=== PATIENT | female | born 1995 | race African-American/Black ===

== ENCOUNTER 2022-11-27 14:51 | Inpatient (IN) | payer MEDICAID ==
[~2022-11-27] VITALS: Ht 172.7 cm; Wt 64.9 kg
[2022-11-27 17:13] LABS: COVID AG,FIA SOURCE NASAL SWAB
[2022-11-27 17:38] LABS: SARS-COV2 (COVID) ANTIGEN,FIA Negative (Negative)
[2022-11-27] MEDS ORDERED: LORazepam 2 MG/ML VIAL IM ONE (19:00)
[2022-11-27] MEDS ORDERED: DiphenhydrAMINE HCL 50 MG/ML VIAL IM ONE (19:00)
[2022-11-27] MEDS ORDERED: HALOPERIDOL LACTATE 5 MG/ML VIAL IM ONE (19:00)
[2022-11-27] MEDS ORDERED: HALOPERIDOL 5 MG TABLET PO PRN (19:15)
[2022-11-27] MEDS ORDERED: ZOLPIDEM TARTRATE 10 MG TABLET PO PRN (19:15)
[2022-11-27] MEDS ORDERED: LORazepam 2 MG TABLET PO PRN (19:15)
[2022-11-27 19:55] LABS: BASOPHILS % (AUTO) 0.7 % (0.0-2.0); EOSINOPHILS % (AUTO) 3.1 % (1.0-6.0); HEMATOCRIT 25.8 % (36-46); HEMOGLOBIN 7.6 g/dL (12.0-16.0); LYMPHOCYTES # (AUTO) 2.2 K/uL (1.0-4.8); LYMPHOCYTES % (AUTO) 33.3 % (22.0-44.0); MEAN CORPUSCULAR HGB CONC 29.7 G/dL (31.0-37.0); MEAN CORPUSCULAR VOLUME 71 fL (80-100); MONOCYTES # (AUTO) 0.8 K/uL (0.1-1.0); MONOCYTES % (AUTO) 11.9 % (2.0-9.0); NEUTROPHILS # (AUTO) 3.4 K/uL (1.8-7.7); PLATELET COUNT (AUTO) 487 K/uL (150-450); RED BLOOD CELL COUNT(AUTO) 3.64 MIL/uL (4.00-5.20); RED CELL DISTRIBUTION WIDTH 18.1 % (11.5-14.5); WHITE BLOOD COUNT (AUTO) 6.6 K/uL (4.5-11.0)
[2022-11-27 20:05] LABS: ANION GAP 10 mmol/L (8-16); CALCIUM, TOTAL 8.9 mg/dL (8.8-10.5); CARBON DIOXIDE 28 mmol/L (22-29); CHLORIDE 106 mmol/L (98-107); GLOMERULAR FILTR. RATE CALC > 60 mL/min (>60); GLUCOSE,RANDOM 148 mg/dL (70-110); POTASSIUM 3.8 mmol/L (3.5-5.1); SODIUM SERUM 144 mmol/L (136-145); UREA NITROGEN, BLOOD 16 mg/dL (7-18)
[2022-11-27 20:13] LABS: ALANINE AMINOTRANSFERASE 18 U/L (12-78); ALBUMIN 3.2 g/dL (3.4-5.0); ALKALINE PHOSPHATASE 84 U/L (46-116); ASPARTATE AMINOTRANSFERASE 19 U/L (15-37); BILIRUBIN,TOTAL 0.2 mg/dL (0.1-1.0); TOTAL PROTEIN, SERUM 7.4 g/dL (6.4-8.2)
[2022-11-27 20:15] LABS: ALCOHOL, BLOOD (SERUM) < 3 mg/dL (0-10)
[2022-11-28 15:30] VITALS: BP 117/64; PULSE 60; RESP 18; TEMP 97.9; O2SAT 100
[2022-11-29 00:49] VITALS: RESP 18; TEMP 98
[2022-11-29] MEDS: QUEtiapine FUMARATE 25 MG TABLET PO SCH (16:30)
[2022-11-29] MEDS ORDERED: DOCUSATE SODIUM 100 MG CAPSULE PO PRN (19:15)
[2022-11-29] MEDS ORDERED: PETROLATUM,WHITE 28 GM JELLY TP PRN (19:15)
[2022-11-29] MEDS ORDERED: ALBUTEROL SULFATE HFA 90 MCG/PUFF 8 GM INHALER IH PRN (19:15)
[2022-11-29] MEDS ORDERED: CloNIDine HCL 0.1 MG TABLET PO PRN (19:15)
[2022-11-29] MEDS ORDERED: IBUPROFEN 400 MG TABLET PO PRN (19:15)
[2022-11-29] MEDS ORDERED: GuaiFENesin/D-METHORPHAN [SUGAR-FREE] 200-20MG/10 ML SYRUP UDCUP PO PRN (19:15)
[2022-11-29] MEDS ORDERED: ONDANSETRON HCL 4 MG TABLET PO PRN (19:15)
[2022-11-29] MEDS ORDERED: NICOTINE 14 MG/24 HOUR PATCH TD PRN (19:15)
[2022-11-29] MEDS ORDERED: LOPERAMIDE HCL 2 MG CAPSULE PO PRN (19:15)
[2022-11-29] MEDS ORDERED: MAGNESIUM HYDROXIDE SUSPENSION 30 ML UDCUP PO PRN (19:15)
[2022-11-29] MEDS ORDERED: MAG HYDROX/AL HYDROX/SIMETH ES 30 ML SUSPENSION UDCUP PO PRN (19:15)
[2022-11-29] MEDS ORDERED: ACETAMINOPHEN 325 MG TABLET PO PRN (19:15)
[2022-11-29 23:30] VITALS: BP 121/68; PULSE 68; RESP 18; TEMP 97.8
[2022-11-30 08:09] VITALS: BP 112/62; PULSE 63; RESP 16; TEMP 97.1
[2022-11-30] MEDS: QUEtiapine FUMARATE 25 MG TABLET PO SCH ×2 (08:31→16:46)
[2022-11-30 20:00] VITALS: BP 109/62; PULSE 86; RESP 18; TEMP 97.8; O2SAT 100
[2022-12-01] MEDS: QUEtiapine FUMARATE 25 MG TABLET PO SCH ×2 (08:06→16:18)
[2022-12-01 08:18] VITALS: BP 100/65; PULSE 64; RESP 17; TEMP 97.1; O2SAT 96
[2022-12-01 08:19] LABS: HEMOGLOBIN A1C 5.6 % (3.8-5.6)
[2022-12-01 08:38] LABS: THYROID STIMULATING HORMONE 0.39 uIU/mL (0.36-3.74)
[2022-12-01 08:38] LABS: APPEARANCE,URINE HAZY (CLEAR); BILIRUBIN,URINE NEGATIVE (NEGATIVE); COLOR,URINE LIGHT YELLOW (YELLOW); GLUCOSE, URINE (UA) NEGATIVE (NEGATIVE); KETONES,URINE NEGATIVE (NEGATIVE); LEUKOCYTE ESTERASE ,URINE LARGE (NEGATIVE); NITRATE,URINE POSITIVE (NEGATIVE); OCCULT BLOOD,URINE SMALL (NEGATIVE); PH,URINE 7.5 (5.0-8.0); PH,URINE DRUG SCREEN 7.5 (5.0-8.0); PROTEIN,URINE NEGATIVE (NEGATIVE); SPECIFIC GRAVITIY, URINE 1.012 (1.003-1.030); UROBILINOGEN,URINE <=1.0 mg/dL (<=1.0)
[2022-12-01 08:47] LABS: AMPHET/METH SCREEN,URINE POSITIVE (NEGATIVE); BARBITURATE SCREEN, URINE NEGATIVE (NEGATIVE); BENZODIAZEPINES SCREEN,URINE NEGATIVE (NEGATIVE); CANNABINOID SCREEN,URINE NEGATIVE (NEGATIVE); COCAINE SCREEN,URINE NEGATIVE (NEGATIVE); METHADONE SCREEN, URINE NEGATIVE (NEGATIVE); OPIATE SCREEN,URINE NEGATIVE (NEGATIVE); PHENCYCLIDINE SCREEN,URINE NEGATIVE (NEGATIVE)
[2022-12-01 08:50] LABS: ALCOHOL, URINE DRUG SCREEN NEGATIVE (NEGATIVE)
[2022-12-01 08:58] LABS: BACTERIA,URINE Many /HPF (None Seen); RBC,URINE 0-2 /HPF (0-2); SQUAMOUS EPITHELIAL CELL,UR Few /LPF (None Seen)
[2022-12-01 20:26] VITALS: BP 102/59; PULSE 80; RESP 18; TEMP 97.3; O2SAT 98
[2022-12-02] MEDS: QUEtiapine FUMARATE 25 MG TABLET PO SCH ×2 (08:02→16:03)
[2022-12-02] MEDS: CEPHALEXIN MONOHYDRATE 500 MG CAPSULE PO SCH ×3 (08:02→16:02)
[2022-12-02 08:03] VITALS: BP 113/60; PULSE 78; RESP 17; TEMP 97.1; O2SAT 98
[2022-12-02] MEDS: FERROUS SULFATE 325 MG EC TABLET PO SCH (17:50)
[2022-12-02 20:25] VITALS: RESP 18
[2022-12-03] MEDS: FERROUS SULFATE 325 MG EC TABLET PO SCH ×3 (06:52→16:46)
[2022-12-03 08:55] VITALS: BP 118/75; PULSE 98; RESP 17; TEMP 98; O2SAT 98
[2022-12-03] MEDS: QUEtiapine FUMARATE 25 MG TABLET PO SCH ×2 (09:05→16:46)
[2022-12-03] MEDS: CEPHALEXIN MONOHYDRATE 500 MG CAPSULE PO SCH ×3 (09:06→16:46)
[2022-12-03 21:49] VITALS: BP 103/64; PULSE 86; RESP 17; TEMP 97.6; O2SAT 99
[2022-12-04] MEDS: FERROUS SULFATE 325 MG EC TABLET PO SCH ×3 (06:28→16:44)
[2022-12-04 08:00] VITALS: BP 109/66; PULSE 82; RESP 17; TEMP 98.7; O2SAT 100
[2022-12-04] MEDS: CEPHALEXIN MONOHYDRATE 500 MG CAPSULE PO SCH ×3 (08:28→16:45)
[2022-12-04] MEDS: QUEtiapine FUMARATE 25 MG TABLET PO SCH ×2 (08:28→16:45)
[2022-12-05 06:02] VITALS: BP 137/70; PULSE 87; RESP 16; TEMP 99.2; O2SAT 98
[2022-12-05] MEDS: FERROUS SULFATE 325 MG EC TABLET PO SCH ×3 (06:50→16:03)
[2022-12-05] MEDS: CEPHALEXIN MONOHYDRATE 500 MG CAPSULE PO SCH ×3 (08:08→16:03)
[2022-12-05] MEDS: QUEtiapine FUMARATE 25 MG TABLET PO SCH ×2 (08:08→16:03)
[2022-12-05 08:37] VITALS: BP 122/77; PULSE 101; RESP 18; TEMP 97.6; O2SAT 99
[2022-12-05] MEDS ORDERED: QUET25TA PO ×2 (15:44→18:04)
[2022-12-05] MEDS ORDERED: CEPH-558 PO (15:47)
[2022-12-05] MEDS ORDERED: FERR325T27 PO (15:47)
[2022-12-05] MEDS ORDERED: FLUCONAZOLE 150 MG TABLET PO ONE (16:15)
[2022-12-05] MEDS ORDERED: FLUC150T61 PO (18:19)
[2022-12-05 20:13] VITALS: RESP 18
== END 2022-12-05 19:47 | disposition home or self-care (01) | DRG 750 ==
LOC: EMS 14:55 → B3A 11-28 12:53
PROVIDERS: ADMIT Psychiatry & Neurology Child & Adolescent Psychiatry; ATTEND Psychiatry & Neurology Child & Adolescent Psychiatry
DX: F20.0 Paranoid schizophrenia (principal); F29 Unspecified psychosis not due to a substance or known physiological condition; D64.9 Anemia, unspecified; Z20.822 Contact with and (suspected) exposure to COVID-19; F14.10 Cocaine abuse, uncomplicated; R73.9 Hyperglycemia, unspecified; F10.10 Alcohol abuse, uncomplicated; N39.0 Urinary tract infection, site not specified
CPT/HCPCS: 80053; 80061; 80307; 81001; 83036; 83540; 83550; 84443; 84703; 85025; 87086; 87186; 99285; G0480; J1200; J1630; J2060